=== PATIENT | female | born 2000 | race Two or more races ===

== ENCOUNTER 2023-01-06 23:38 | Emergency (ER) | payer OTHER ==
[~2023-01-06] VITALS: Ht 162.6 cm; Wt 68.0 kg
[2023-01-07 00:14] VITALS: BP 129/86; TEMP 98; O2SAT 99
[2023-01-07] MEDS ORDERED: TETRACAINE HCL 0.5% OPHTALMIC 15 ML BOTTLE OP ONE (01:00)
[2023-01-07] MEDS ORDERED: FLUORESCEIN SODIUM OPHTH 1 EA STRIP OP ONE (01:00)
[2023-01-07] MEDS ORDERED: FLUORESCEIN SODIUM OPHTH 1 EA STRIP ONE (01:05)
[2023-01-07] MEDS ORDERED: POLY10DR3 EACHEYE (01:59)
[2023-01-07] MEDS ORDERED: ERYTHROMYCIN BASE OPHTH 3.5 GM TUBE OP ONE (02:00)
[2023-01-07] MEDS ORDERED: ERYTHROMYCIN BASE OPHTH 3.5 GM TUBE ONE (02:04)
== END 2023-01-07 02:40 | disposition home or self-care (01) ==
LOC: ER 23:44
DX: H10.33 Unspecified acute conjunctivitis, bilateral (principal); Z79.899 Other long term (current) drug therapy
CPT/HCPCS: 99284; A6403